=== PATIENT | female | born 1965 | race Caucasian/White ===

== ENCOUNTER 2021-06-03 08:50 | Outpatient (REF) | payer BC, SELFPAY ==
[2021-06-03 12:47] LABS: Free T4 (Free Thyroxine) 1.32 ng/dL (0.71-1.85); Thyroid Stimulating Hormone 1.96 uIU/mL (0.32-4.0)
== END 2021-06-03 08:51 | disposition home or self-care (01) ==
LOC: HO.MANLDS 08:50
PROVIDERS: PCP Internal Medicine; Visit Provider Internal Medicine
DX: E03.9 Hypothyroidism, unspecified (principal)
CPT/HCPCS: 36415; 84439; 84443

== ENCOUNTER 2022-01-19 09:29 | Outpatient (REF) | payer BC, SELFPAY ==
[2022-01-19 12:11] LABS: Thyroid Stimulating Hormone 4.24 uIU/mL (0.32-4.0)
== END 2022-01-19 09:30 | disposition home or self-care (01) ==
LOC: HO.MANLDS 09:29
PROVIDERS: PCP Internal Medicine; Visit Provider Internal Medicine
DX: Z00.00 Encounter for general adult medical examination without abnormal findings (principal); E03.9 Hypothyroidism, unspecified
CPT/HCPCS: 36415; 84443

== ENCOUNTER 2022-09-14 10:01 | Outpatient (REF) | payer BC, SELFPAY ==
[2022-09-14 11:11] LABS: MANUAL DIFF FLAG NO
[2022-09-14 11:17] LABS: Basophils Percent Auto 0.7 % (0-2); Eosinophils Absolute Auto 0.1 X10*3/uL (0.0-0.4); Eosinophils Percent Auto 2.1 % (0-4); Hematocrit 40.4 % (37.0-47.0); Hemoglobin 13.3 g/dl (12.0-16.0); Lymphocytes Absolute Auto 1.6 X10*3/uL (1.2-4.9); Mean Corpuscular HGB Conc 32.9 g/dl (31.0-35.0); Mean Corpuscular Hemoglobin 28.9 pg (27.0-33.0); Mean Corpuscular Volume 87.8 fL (80.0-98.0); Mean Platelet Volume 10.7 fL (9.4-12.3); Monocytes Absolute Auto 0.6 X10*3/uL (0.1-1.2); Monocytes Percent Auto 10.9 % (2-11); Neutrophils Absolute Auto 3.1 x10*3/uL (2.0-8.3); Neutrophils Percent Auto 57.3 % (45-73); Platelet Count 276 X10*3/uL (160-400); Red Cell Distribution Width 12.6 % (11.0-16.0); White Blood Count 5.3 X10*3/uL (4.8-10.8)
[2022-09-14 13:24] LABS: Alanine Aminotransferase 15 U/L (0-31); Albumin Level 4.3 g/dL (3.5-5.0); Alkaline Phosphatase 54 U/L (39-117); Anion Gap 13 (12-20); Aspartate Amino Transferase 18 U/L (5-31); Bilirubin Total 0.6 mg/dL (0.0-1.0); Blood Urea Nitrogen 13 mg/dL (9-16); Calcium 9.6 mg/dL (8.4-10.2); Carbon Dioxide 24 mmol/L (22-29); Chloride 107 mmol/L (96-108); Cholesterol 286 mg/dL; Estimated Glomerular Filt Rate > 60; Glucose Random 86 mg/dL (60-115); HDL Cholesterol 86 mg/dL; LDL Cholesterol Calculated 188 mg/dl; Sodium 140 mmol/L (135-145); Thyroid Stimulating Hormone 1.71 uIU/mL (0.32-4.0); Total Protein 6.9 g/dL (6.5-8.0); Triglycerides 63 mg/dL; Vitamin D 25-OH Total 31.3 ng/mL (>30)
== END 2022-09-14 10:02 | disposition home or self-care (01) ==
LOC: HO.MANLDS 10:01
PROVIDERS: Visit Provider Internal Medicine
DX: Z00.00 Encounter for general adult medical examination without abnormal findings (principal); E03.9 Hypothyroidism, unspecified
CPT/HCPCS: 36415; 80053; 80061; 82306; 84443; 85025

== ENCOUNTER 2023-07-12 15:21 | Outpatient (REF) | payer BC, SELFPAY ==
[2023-07-12 18:01] LABS: MANUAL DIFF FLAG NO
[2023-07-12 18:07] LABS: Basophils Percent Auto 0.4 % (0-2); Eosinophils Absolute Auto 0.1 X10*3/uL (0.0-0.4); Eosinophils Percent Auto 1.4 % (0-4); Hematocrit 40.9 % (37.0-47.0); Hemoglobin 13.3 g/dl (12.0-16.0); Imm Gran Abs Auto 0.03 X10*3/uL (0.00-0.03); Imm Gran Pct Auto 0.4 % (0.0-0.4); Lymphocytes Absolute Auto 2.1 X10*3/uL (1.2-4.9); Lymphocytes Percent Auto 26.3 % (20-40); Mean Corpuscular HGB Conc 32.5 g/dl (31.0-35.0); Mean Corpuscular Hemoglobin 29.1 pg (27.0-33.0); Mean Corpuscular Volume 89.5 fL (80.0-98.0); Monocytes Absolute Auto 0.8 X10*3/uL (0.1-1.2); Monocytes Percent Auto 9.7 % (2-11); Neutrophils Percent Auto 61.8 % (45-73); Platelet Count 311 X10*3/uL (160-400); Red Blood Count 4.57 X10*6/uL (4.20-5.50); White Blood Count 8.1 X10*3/uL (4.8-10.8)
[2023-07-12 18:37] LABS: Free T4 (Free Thyroxine) 1.07 ng/dL (0.71-1.85); Thyroid Stimulating Hormone 3.69 uIU/mL (0.32-4.0)
== END 2023-07-12 15:22 | disposition home or self-care (01) ==
LOC: HO.MANLDS 15:21
PROVIDERS: Visit Provider Internal Medicine
DX: E03.9 Hypothyroidism, unspecified (principal); E06.3 Autoimmune thyroiditis
CPT/HCPCS: 36415; 84439; 84443; 85025

== ENCOUNTER 2024-08-27 14:15 | Outpatient (REF) | payer BC, SELFPAY ==
[2024-08-27 17:44] LABS: MANUAL DIFF FLAG NO
[2024-08-27 17:50] LABS: Basophils Percent Auto 0.5 % (0-2); Eosinophils Absolute Auto 0.1 X10*3/uL (0.0-0.4); Eosinophils Percent Auto 1.5 % (0-4); Hematocrit 38.3 % (37.0-47.0); Hemoglobin 13.1 g/dl (12.0-16.0); Imm Gran Abs Auto 0.03 X10*3/uL (0.00-0.03); Imm Gran Pct Auto 0.4 % (0.0-0.4); Lymphocytes Absolute Auto 1.9 X10*3/uL (1.2-4.9); Lymphocytes Percent Auto 24.7 % (20-40); Mean Corpuscular HGB Conc 34.2 g/dl (31.0-35.0); Mean Corpuscular Hemoglobin 30.6 pg (27.0-33.0); Mean Corpuscular Volume 89.5 fL (80.0-98.0); Mean Platelet Volume 11.1 fL (9.4-12.3); Monocytes Absolute Auto 0.7 X10*3/uL (0.1-1.2); Monocytes Percent Auto 9.1 % (2-11); Neutrophils Absolute Auto 4.8 x10*3/uL (2.0-8.3); Neutrophils Percent Auto 63.8 % (45-73); Platelet Count 303 X10*3/uL (160-400); Red Blood Count 4.28 X10*6/uL (4.20-5.50); Red Cell Distribution Width 12.5 % (11.0-16.0); White Blood Count 7.5 X10*3/uL (4.8-10.8)
[2024-08-27 18:33] LABS: Alanine Aminotransferase 23 U/L (0-31); Albumin Level 4.3 g/dL (3.5-5.0); Alkaline Phosphatase 66 U/L (39-117); Anion Gap 15 (12-20); Aspartate Amino Transferase 30 U/L (5-31); Bilirubin Total 0.4 mg/dL (0.0-1.0); Blood Urea Nitrogen 12 mg/dL (9-16); Calcium 9.5 mg/dL (8.4-10.2); Carbon Dioxide 25 mmol/L (22-29); Chloride 105 mmol/L (96-108); Estimated Glomerular Filt Rate > 60; Glucose Random 86 mg/dL (60-115); Potassium 3.9 mmol/L (3.3-5.1); Sodium 141 mmol/L (135-145); Total Protein 7.3 g/dL (6.5-8.0)
[2024-08-27 18:43] LABS: T4 Thyroxine 8.7 ug/dL (4.5-12.0)
== END 2024-08-27 14:16 | disposition home or self-care (01) ==
LOC: HO.MANLDS 14:15
PROVIDERS: Visit Provider Internal Medicine
DX: E03.9 Hypothyroidism, unspecified (principal)
CPT/HCPCS: 36415; 80053; 84436; 84443; 85025

== ENCOUNTER 2025-09-17 15:26 | Outpatient (REF) | payer BC, SELFPAY ==
[2025-09-17 18:16] LABS: MANUAL DIFF FLAG NO
[2025-09-17 18:32] LABS: Hematocrit 41.3 % (37.0-47.0); Hemoglobin 13.4 g/dl (12.0-16.0); Imm Gran Abs Auto 0.01 X10*3/uL (0.00-0.03); Imm Gran Pct Auto 0.1 % (0.0-0.4); Lymphocytes Absolute Auto 1.9 X10*3/uL (1.2-4.9); Mean Corpuscular HGB Conc 32.4 g/dl (31.0-35.0); Mean Corpuscular Hemoglobin 29.1 pg (27.0-33.0); Mean Corpuscular Volume 89.8 fL (80.0-98.0); NRBC Abs Auto 0.000 X10*3/uL (0.0-0.012); NRBC Pct Auto 0.0 /100WBC (0.0-0.2); Platelet Count 279 X10*3/uL (160-400); Red Blood Count 4.60 X10*6/uL (4.20-5.50); White Blood Count 7.4 X10*3/uL (4.8-10.8)
[2025-09-17 18:50] LABS: Alanine Aminotransferase 21 U/L (0-31); Albumin Level 4.6 g/dL (3.5-5.0); Alkaline Phosphatase 75 U/L (39-117); Anion Gap 9 (12-20); Aspartate Amino Transferase 22 U/L (5-31); Blood Urea Nitrogen 13 mg/dL (9-16); Calcium 9.8 mg/dL (8.4-10.2); Carbon Dioxide 29 mmol/L (22-29); Chloride 108 mmol/L (96-108); Estimated Glomerular Filt Rate > 60; Potassium 4.4 mmol/L (3.3-5.1); Sodium 142 mmol/L (135-145); Total Protein 7.3 g/dL (6.5-8.0)
--- OUTSIDE RECORDS SUMMARY | 2025-09-17 19:02 | XMS_ITS | Encounter Summary ---
Author Organization [facility] Address [address] [place] [address] Phone Care Team Providers Care Salad Bar Clerk Name Role Phone Mode Richey DO Primary Care Provider [phone] Bigda, Mode Castillo DO Unavailable Bigda, Mode Castillo DO Unavailable Encounter Details Date Type Department Care Team (Late st Contact Info) Description 07/10/2024 Procedure Pass [facility], [facility] [address] [place] [address] Social History Tobacco Use Types Packs/Day Years Used Date Smoking Tobacco: Former Smokeless Tobacco: Never Alcohol Use Standard Drinks/Week Comments Yes 0 (1 standard drink = 0.6 oz pur e alcohol) Occasional Education Answer Date Recorded Are you interested in more education? Not on denae e 02/18/2023 Are you concerned about learning? Not on file 02/18/2023 No 02/18/2023 No 02/18/2023 Digital Access Answer Date Recorded No 03/19/2023 No 03/19/2023 Reliable internet access at home? Not on file 03/19/2023 Device with a working camera? Not on file Comments No Sex and Gender Information Value Date Recorded Sex Assigned at Not on file Legal Sex Female 9:38 PM EDT Gender Identity Not on file Sexual Orientation Not on file documented as of this encounter Plan of Treatment Not on file documented as of this encounter Visit Diagnoses Not on filedocumented in this encounter Care Teams Salad Bar Clerk Relationship Specialty Start Date End Date Mode Richey DO [email or web address] PCP - General 08/08/17 Mode Richey DO Historical LMR Provider 08/10/17 ViviMode torrezDO [address] [place] [address] [email or web address] Insurance Assigned Provider 01/28/24 documented as of this encounter Additional Source Comments The information contained in this document represents components of the legal health record. It is not the complete legal health record.[facility]
--- OUTSIDE RECORDS SUMMARY | 2025-09-17 19:02 | XMS_ITS | Encounter Summary ---
Author Organization [facility] Address [address] [place] [address] Phone Care Team Providers Care Manager Ems Name Role Phone Rossi Mode Castillo DO Primary Care Provider [phone] Mode Richey DO Unavailable Court Richardson MD Unavailable Tyler Vann MD Unavailable [phone] Breonna Gates WEAVING INSTRUCTOR Unavailable Carin Hernandez WEAVING INSTRUCTOR Unavailable Tarun NolanC Unavailable Kristen Silveira RDCS Unavailable [email or web address] Osmar Lou MD Unavailable [phone] Abby Tijerina WEAVING INSTRUCTOR Unavailable [phone] Mode Richey DO Unavailable Encounter Details Date Type Department Care Team (Late st Contact Info) Description 06/12/2021 Procedure Pass [address] [id number] Social History Tobacco Use Types Packs/Day Years Used Date Smoking Tobacco: Former Smokeless Tobacco: Never Comments No Sex and Gender Information Value Date Recorded Sex Assigned at Not on file Legal Sex Female 9:38 PM EDT Gender Identity Not on file Sexual Orientation Not on file documented as of this encounter Plan of Treatment Not on file documented as of this encounter Visit Diagnoses Not on filedocumented in this encounter Additional Health Concerns Infection Onset Date Last Indicated Resolved Time CoV-Risk 06/11/2021 06/11/2021 06/22/2021 1:22 AM EDT documented as of this encounter Care Teams Manager Ems Relationship Specialty Start Date End Date Mode Richey DO ana PCP - General 08/08/17 Mode iRchey DO Historical LMR Provider 08/10/17 Court Richardson MD [address] [place] [address] Historical LMR Provider 08/10/17 2 Tyler Vann MD [address] [place] [address] Historical LMR Provider 08/10/17 Breonna Gates, WEAVING INSTRUCTOR [address] [place] [address] [email or web address] Historical LMR Provider 08/10/17 2 Carin Hernandez, PATRIA [address] [place] [address] Historical LMR Provider 08/10/17 2 Tarun Nolan PA-C [address] [place] [address] [facility], [place] [address] Historical LMR Provider 08/10/17 10/31/21 Kristen Silveira, VIVEKCS Historical LMR Provider 08/10/17 10/31/21 Osamr Lou MD [address] [place] [address] Historical LMR Provider 08/10/17 2 Abby Tijerina NP [address] [place] [address] Historical LMR Provider 08/10/17 2 Mode Richey DO [address] [place] [address] [email or web address] Insurance Assigned Provider 01/28/24 documented as of this encounter Additional Source Comments The information contained in this document represents components of the legal health record. It is not the complete legal health record.[facility]
--- OUTSIDE RECORDS SUMMARY | 2025-09-17 19:02 | XMS_ITS | Continuity of Care Document ---
Author Organization [facility], [facility] Address [address] [facility] [place] [address] [place] [address] Assessment Encounter Date Assessment Date Assessment LastModified by Organization Details LastModified Time 09/17/2025 09/17/2025 [id number] [place] [id number] (SHIPPER) MDM MODERATE MUST MEET 2 OUT OF 3 ELEMENTS: PROBLEMS, DATA OR RISK ELEMENT 1: PROBLEMS ADDRESSED 1 OR MORE CHRONIC ILLNESS WITH EXACERBATION OR 2 OR MORE STABLE CHRONIC ILLNESSES OR 1 UNDIAGNOSED NEW PROBLEM OR 1 ACUTE ILLNESS W/SYMPTOMS OR 1 ACUTE COMPLICATED INJURY ELEMENT 2: DATA MUST MEET 1 OF 3 CATEGORIES CATEGORY 1: REVIEW OF PRIOR EXTERNAL NOTES, REVIEW OF RESULTS, ORDERING OF EACH TEST, ASSESSMENT REQUIRING INDEPENDENT HISTORIAN OR CATEGORY 2: INDEPENDENT INTERPRETATION OF TESTS BY ANOTHER PHYSICIAN OR SPECIALIST OR CATEGORY 3: DISCUSSION OF MGT OR TEST INTERPRETATION W/EXTERNAL PHYSICIAN OR SPECIALIST ELEMENT 3: RISK RISK OF COMPLICATIONS AND/OR MORBIDITY OR MORTALITY OF PATIENT MANAGEMENT PROVIDER MUST THOROUGHLY DOCUMENT EACH ELEMENT THAT IS COVERED Not available 09/17/2025 15:23:06 Plan of Treatment Reminders Order Date Submit Date Provider Last Modified By Organization Details Last Modified Time Details Appointments FOLLOW UP 15 2024 02:45P M DR VALVERDE Not available Not available Not available Lab TSH + free T4, serum 2024 025 [facility], [address] [place] [address], [place], [address], 09/17/2025 15:30:47 CBC 2024 025 [facility], [address] [place] [address], [id number], 09/17/2025 15:30:47 CMP, serum or plasma 2024 025 [facility], [address] [place] [address], [place], [address], 09/17/2025 15:30:47 Referral None recorded . Procedures None recorded . Surgeries None recorded . Imaging None recorded . Medication Orders None recorded . Patient TargetsNo targets recorded. Patient InstructionsNo instructions recorded. Reason for Referral None Reported. Problems Name Problem SNOMED Code Status Onset Date Resolution Date Notes Provider Name and Address Organization Details Recorded Time Willow thyroiditi s 55612778 Active 2018 Not Available [facility] 12:50:35 Hypothyroi dism 18584651 Active 2018 Not Available [facility] 12:50:35 Contact dermatitis caused by urushiol from [facility] richard 814235933 Active 2022 KARLA ESTRADA [address] [place] [address], [phone], [facility] [place] 3 17:03:05 Problem Notes None recorded. Medical Equipment None Reported. Allergies Allergen ID Allergen Name Allergen Category Reaction Reaction Severity Criticality Documentation Date Start Date Code Code System Note Provider Name and Address Organization Details Recorded Time 2647 Product containin g penicilli n (product) medicatio n Not available Not available Not available 10/25/2018 601[address] 8001 SN[facility]ED [facility] 9 10:59:09 Medications Name Sig Start Date Stop Date Status Note LastModified by Organization Details LastModified Time levothyroxi ne 175 mcg tablet TAKE 1 TABLET BY MOUTH ONCE DAILY- 04/11 completed Not Available Not Available Not Available prednisone 10 mg tablet TAKE 4 TABLETS BY MOUTH ONCE DAILY FOR 5 DAYS 08/27 completed Not Available Not Available Not Available azithromyci n 250 mg tablet TAKE 2 TABLETS (500 MG) BY ORAL ROUTE ONCE DAILY FOR 1 DAY THEN 1 TABLET (250 MG) BY ORAL ROUTE ONCE DAILY FOR 4 DAYS 09/10 completed Not Available Not Available Not Available ofloxacin 0.3 % eye drops INSTILL 1 DROP INTO EACH EYE 4 TIMES DAILY START 1 DAY BEFORE SURGERY 06/12 completed Not Available Not Available Not Available oxycodone-a cetaminophe n 5 mg-325 mg tablet TAKE 1 TABLET BY MOUTH EVERY 4 TO 6 HOURS NEEDED FOR PAIN 06/12 completed Not Available Not Available Not Available fluorometho lone 0.1 % eye drops,suspe nsion INSTILL 1 DROP INTO EACH EYE 4 TIMES DAILY. START AFTER SURGERY. 06/12 completed Not Available Not Available Not Available levothyroxi ne 150 mcg tablet TAKE 1 TABLET BY MOUTH ONCE DAILY active Not Available Not Available No t Available diclofenac potassium 50 mg tablet 10/25 completed Not Available Not Available Not Available omeprazole 20 mg capsule,del ayed release 10/25 completed Not Available Not Available Not Available zolpidem 5 mg tablet TAKE 1 TABLET BY MOUTH NEEDED FOR SLEEP 08/27 completed Not Available Not Available Not Available ibuprofen 600 mg tablet 09/15 completed Not Available Not Available Not Available methylpredn isolone 4 mg tablets in a dose pack TAKE BY MOUTH DIRECTED ON INSIDE OF PACKAGE 07/12 completed Not Available Not Available Not Available Afluria Qd 2018- (36 mos up)(PF)60 mcg (15 mcg x4)/0.5 mL IM syringe 09/10 completed Not Available Not Available Not Available Vitals Date Recorded Body weight Body mass index (BMI) Body height Heart rate Oxygen saturation Systolic And Diastolic Provider Name and Address Organization Details Last Updated DateTime 5 [address].9 1 g 28.8 kg/m2 177.8 cm 67 /min 98 % 132/64 mm[Hg] [facility] 5 14:54:17 Social History Question Answer Notes LastModified by Organizat ion Details LastModified Time Tobacco Smoking Status Former Smoker quit 30 years Not Available [facility] 08/26/2020 03:36:24 What Was The Date Of Your Most Recent Tobacco Screening? 09/17/2025 [email or web address] Information not available 09/17/2025 Sex: Female Functional Status Question Answer Note LastModified by Organization D etails LastModified Time Do you or have you ever used any other forms of tobacco or nicotine? No [email or web address] Information not available 07/12/2023 Mental Status None recorded. Family History Nothing Reported. Medical History No medical history recorded. Gynecological HistoryNo gynecological history recorded. Obstetrics History GPAL:G 0 P 0 0 0 0 Immunizations Vaccine Type Date Status Note Provider Nam e and Address Organization Details Recorded Time COVID-19, mRNA, LNP-S, PF, 100 mcg/0.5mL dose or 50 mcg/0.25mL dose 1 completed Mode Valverde DO [address] [place] [address], [phone], [facility] [place] 06/12/2021 11:24:27 COVID-19, mRNA, LNP-S, PF, 100 mcg/0.5mL dose or 50 mcg/0.25mL dose 1 completed Mode Valverde DO [address] [place] [address], [phone], [facility] [place] 06/12/2021 11:24:33 Influenza, split virus, quadrivalent, preservative 1 completed KARLA ESTRADA [address] [place] [address], [phone], [facility] [place] 07/31/2021 13:42:42 Influenza, split virus, quadrivalent, preservative 1 [facility] 13:43:06 COVID-19, mRNA, LNP-S, PF, 100 mcg/0.5mL dose or 50 mcg/0.25mL dose 2 completed Mode Valverde DO [address] [place] [address], [phone], [facility] [place] 09/06/2022 10:52:46 Influenza, split virus, quadrivalent, preservative 2 completed Mode Valverde DO [address] [place] [address], [phone], [facility] [place] 09/06/2022 11:11:21 zoster recombinant 3 completed Luiza fox [facility] 04/05/2023 10:27:51 Tdap 3 completed Luiza Chavez [facility] 04/05/2023 10:40:59 Influenza, split virus, quadrivalent, preservative 9 completed Mode Valverde DO [address] [place] [address], [phone], [facility] [place] 08/24/2019 09:56:41 Past Encounters Encounter ID Performer Location Encounter Start Date Encounter Closed Date Diagnosis/Indication Diagnosis SNOMED-CT Code Diagnosis ICD10 Code Diagnosis IMO Codes Diagnosis Note [id number] Mode Valverde DO [facility] [address] [facility] [address] 09/17/2025 14:31:43 09/17/2025 16:05:50 Hypothyroidism 67042580 E03.9 doing well and is feeling well Health Concerns Section Related Observation LastModified by Organization Detai ls LastModified Time None Recorded Concern Status LastModified by Organization Details LastModified Time None Recorded Payers Encounter Date Sequence Insurance Name Policy Number Policy Bhardwaj Covered Member ID Bhardwaj Member ID Guarantor Name 09/17/2025 1 [facility] [id number] Letty Collier [id number] Letty Collier Notes Date Note Type Note Provider Name a nd Address Organization Details Recorded Time 09/17/2025 text/html ROS as noted in the HPI here for rechk and is doing ok overallrelates feels well and is doing ok Mode Valverde DO [address] [place], [address], [facility] [place] 09/17/2025 15:25:19 OBGyn Episode No OBEpisode recorded.
--- OUTSIDE RECORDS SUMMARY | 2025-09-17 19:02 | XMS_ITS | Clinical Summary ---
Author Organization [facility] Address [address] [place] [id number] Phone Care Team Providers [employer] Name Role Phone Mode Richey DO Primary Care Provider [phone] Bigda, Mode Castillo DO Unavailable Bigda, Mode Castillo DO Unavailable Allergies Active Allergy Reactions Criticality Noted Date Comments Penicillins Hives 04/12/2017 Medications fluorometholon e (FML LIQUIFILM) 0.1 % ophthalmic suspension fluorometholone 0.1 % eye drops,suspension INSTILL 1 DROP INTO EACH EYE 4 TIMES DAILY. START AFTER SURGERY. 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 Immunizations Immunization Administration Dates Next Due COVID-19 (Pre-08/15) Moderna Vaccine, mRNA, PF 0 12/03/2020,11/05/2020 Influenza Quadrivalent Preservative Free IM 07/26 Family History Medical History Relation Comments Breast cancer Paternal Aunt Breast cancer Paternal Cousin Relation Status Comments Paternal Aunt Paternal Cousin Social History Tobacco Use Types Packs/Day Years [...] on file Sexual Orientation Not on file Last Filed Vital Signs Vital Sign Reading Time Taken Comments Blood Pressure 124/76 08/23/2024 10:29 AM EDT Pulse 60 08/14/2023 11:13 AM EDT Temperature 36.5 C (97.7 F) 08/14/2023 11:13 AM EDT Respiratory Rate 17 08/14/2023 11:13 AM EDT Oxygen Saturation 98% 08/14/2023 11:13 AM EDT Inhaled Oxygen Concentration - - Weight 91.6 kg (202 lb) 08/23/2024 10:29 AM EDT Height 177.8 cm (5' 10 ) 08/23/2024 10:29 AM EDT Body Mass Index 28.98 08/23/2024 10:29 AM EDT Plan of Treatment Health Maintenance Due Date Last Done Comments TSH LEVEL 1967 DEPRESSION SCREENING 1979 SMOKING Hx and SMOKELESS TOBACCO SCREENING 1980 HEPATITIS C SCREENING 1985 HIV ONE-TIME SCREENING (18-65 YEARS) 1985 SCREENING FOR DIABETES 2002 COLOGUARD 2012 COLONOSCOPY 2012 COLORECTAL CANCER SCREENING 2012 FIT TEST 2012 FOBT 2012 SIGMOIDOSCOPY 2012 VIRTUAL COLONOSCOPY 2012 PNEUMOCOCCAL VACCINES (50+ years) (1 of 1 - PCV) 2017 ZOSTER VACCINES (2 of 2) 05/31/2023 04/05/2023 PAP SMEAR 08/17/2024 08/17/2021, 03/11/2015 INFLUENZA VACCINE (#1) 2025 , 07/30/2021, 08/22/2019 COVID-19 VACCINE ( season) 2025 09/06/2022, 08/21/2021, 12/03/2020, Additional history exists MAMMOGRAM 06/11/2027 06/11/2025, 05/26, 09/28/2019, Additional history exists LIPID PANEL 09/14/2027 09/14/2022, 09/14/2022 Adult Td,Tdap Booster 04/05/2033 04/05/2023 RSV VACCINE (1 - 1-dose 75+ series) 2042 HEPATITIS A VACCINES Aged Out No long er eligible based on patient's age to complete this topic HIB VACCINES Aged Out No longer eligi ble based on patient's age to complete this topic MENINGOCOCCAL VACCINES (ACWY) Aged Out No longer eligible based on patient's age to complete this topic MENINGOCOCCAL VACCINES (B) Aged Out N o longer eligible based on patient's age to complete this topic Medical Devices Not on file Procedures Procedure Name Priority Date/Time Associated Diagnosis Comments BI MAMMOGRAM SCREENING WITH TOMOSYNTHESIS WITH CAD (BILATERAL) Routine 06/11/2025 9:15 AM EDT Breast screening PAP TEST Routine 08/17/2021 12:00 AM EDT from Last 3 Months or Most Recently Relevant to Health Maintenance Results * BI MAMMOGRAM SCREENING WITH TOMOSYNTHESIS WITH CAD (BILATERAL) (06/11/2025 9:15 AM EDT) Anatomical Region Laterality Modality Breast Left, Breast Right, Breast Bilateral Bila teral Mammography 06/12/2025 8:21 AM EDT Impressions 06/12/2025 8:31 AM EDT No mammographic evidence of malignancy in either breast. Annual screening mammography is recommended. BI-RADS 2 BENIGN The patient will be notified of the results and recommendations. Narrative 06/12/2025 8:31 AM EDT BI MAMMOGRAM SCREENING WITH TOMOSYNTHESIS WITH CAD (BILATERAL) Additional patient information: Screening. COMPARISON: Comparison is made with relevant prior imaging. Breast composition: The breasts are heterogeneously dense, which may obscure small masses. FINDINGS: No abnormal masses, suspicious calcifications, or other significant findings are identified mammographically in either breast. The group of microcalcifications in the posterior outer left breast above the nipple line on the MLO view does not appear significant changed from 06/22/2021. Biopsy marker remains present in the outer left breast more anteriorly. Procedure Note Kirit Wilde MD - 06/12/2025 BI MAMMOGRAM SCREENING WITH TOMOSYNTHESIS WITH CAD (BILATERAL) Additional patient information: Screening. COMPARISON: Comparison is made with relevant prior imaging. Breast composition: The breasts are heterogeneously dense, which mayobscure small masses. FINDINGS: No abnormal masses, suspicious calcifications, or other significantfindings are identified mammographically in either breast. The group ofmicrocalcifications in the posterior outer left breast above the nippleline on the MLO view does not appear significant changed from 06/22/2021.Biopsy marker remains present in the outer left breast more anteriorly. IMPRESSION: No mammographic evidence of malignancy in either breast. Annual screening mammography is recommended. BI-RADS 2 BENIGN The patient will be notified of the results and recommendations. us Beto Joon Dee DO IMG MG EXAMS Final R esult * Pap Smear (08/17/2021 12:00 AM EDT) 08/17/2021 08/18/2021 9:2 3 AM EDT Narrative SEE NARRATIVE - 08/25/2021 4:13 PM EDT [address] [id number] Sports Physician: Dodie Thomas MD MANAGER MONITORING Cytology Report FINAL DIAGNOSIS A. PAP SMEAR (SUREPATH) CE: SPECIMEN ADEQUACY: Satisfactory for evaluation; transformation zone present. INTERPRETATION: NEGATIVE FOR INTRAEPITHELIAL LESION OR MALIGNANCY. Electronically Signed Out By: ZACHARY Rich(ASCP) The Pap test is a screening test primarily for squamous cancers and precursors and has associated false-negative and false-positive results. New technologies such as liquid-based preparations may decrease but will not eliminate all false-negative results. Regular sampling and follow-up of unexplained clinical signs and symptoms are recommended to minimize false negative results. PROCEDURES/ADDENDA HPV Testing (Requested) Ordered Date: 08/18/2021 A. PAP SMEAR (SUREPATH) CE: Human Papilloma Virus Test Negative for high-risk human papillomavirus types 16, 18, 45 and the Other high risk probe set (Includes 31, 33, 35, 39, 51, 52, 56, 58, 59, 66, 68) by [employer] HR-HPV analysis. Clinical correlation is advised. This HPV test was performed at [facility], [address] [place] [address]. This test has been FDA approved for SurePath cervical cytology specimens. The accuracy and precision of this test for all other specimen sources has been verified in the Cytopathology Laboratory of the [facility] and has not been cleared or approved by the U.S. Food and Drug Administration. Clinical correlation is advised. CLINICAL HISTORY Date of Last Menstrual Period: Not Provided Menstrual History: Post Menopausal Other Clinical Conditions: Screening Pap SPECIMEN SOURCE A: PAP SMEAR (SUREPATH) CE Patient Name: MCMATTHEW DICKSONIDITH : 1965 (Age: 56) Sex: F [facility]: [facility] Location: [facility] Date of Collection: 08/17/2021 Date of Reported: 08/25/2021 16:13 Results to: Mayra Dickson MSN, BS us Mayra Dickson [employer] SUPERVISOR CYTOLOGY ORDERABLES Final Resu lt SEE NARRATIVE from Last 3 Months or Most Recently Relevant to Health Maintenance Insurance * Guarantor: Letty Blood Account Type Relation to Patient Date of Phone Billing Address Personal/Family Self [address] [place] [id number] [facility] Member Subscriber Plan / Payer ( fective 2021-) Name:Letty Blood Relation to Subscriber:Self Name:LETTY BLOOD Payer ID:[id number] (NAIC) Type:HMO Address: [id number] [place] [phone] * Guarantor: Letty Blood Account Type Relation to Patient Date of Phone Billing Address Personal/Family Self [address] [place] [address] Member Subscriber Plan / Payer ( fective 2021-) Name:Letty Blood Relation to Subscriber:Self Name:LETTY BLOOD Payer ID:[id number] (NAIC) Type:HMO Address: [address] [place] [id number] * Guarantor: Letty Blood Account Type Relation to Patient Date of Phone Billing Address Personal/Family Self [address] [place] [id number] [place] [address] Member Subscriber Plan / Payer ( fective 2021-) Name:Letty Blood Relation to Subscriber:Self Name:LETTY BLOOD Payer ID:[id number] (NAIC) Type:HMO Address: [address] [place] [address] Member Subscriber Plan / Payer ( fective 2021-) Name:Letty Blood Relation to Subscriber:Self Name:LETTY BLOOD Payer ID:[id number] (NAIC) Type:HMO Address: [id number] [place] [phone] * Guarantor: Letty Blood Account Type Relation to Patient Date of Phone Billing Address Personal/Family Self [address] [place] [phone] [place] [address] Member Subscriber Plan / Payer ( fective 2021-) Name:Letty Blood Relation to Subscriber:Self Name:LETTY BLOOD Payer ID:[id number] (NAIC) Type:HMO Address: [id number] [place] [phone] * Guarantor: Letty Blood Account Type Relation to Patient Date of Phone Billing Address Personal/Family Self [address] [place] [phone] [place] [address] Member Subscriber Plan / Payer ( fective 2021-) Name:Letty Blood Relation to Subscriber:Self Name:LETTY BLOOD Payer ID:[id number] (NAIC) Type:HMO Address: [facility] [id number] [place] [id number] [place] Care Teams [employer]er Relationship Specialty Start Date End Date Mode Richey DO PCP - General 08/08/17 Mode Richey DO Historical LMR Provider 08/10/17 Mode Richey DO [address] [place] [id number] [email or web address] Insurance Assigned Provider 01/28/24 Additional Source Comments The information contained in this document represents components of the legal health record. It is not the complete legal health record.[facility]
--- OUTSIDE RECORDS SUMMARY | 2025-09-17 19:02 | XMS_ITS | Data Portability ---
Author Organization [facility], Telehealth Patient Home Address [address] [place] [address] Assessment Encounter Date Assessment Date Assessment LastModified by Organization Details LastModified Time 06/12/2021 06/12/2021 [id number] [place] [id number] (DERMATOLOGY TECHNICIAN) MDM MODERATE MUST MEET 2 OUT OF [...] EACH ELEMENT THAT IS COVERED Not available 06/12/2021 11:34:00 07/12/2023 07/12/2023 [id number] [place] [id number] (DERMATOLOGY TECHNICIAN) : MDM LOW MUST MEET 2 OF 3 ELEMENTS: PROBLEMS, DATA OR RISK ELEMENT 1: PROBLEMS ADDRESSED (LOW): 2 OR MORE SELF-LIMITED OR MINOR PROBLEMS OR 1 STABLE CHRONIC ILLNESS OR 1 ACUTE UNCOMPLICATED ILLNESS OR INJURY ELEMENT 2: DATA TO BE REVISED AND ANALYZED (LOW) MUST MEET 1 OF 2 CATEGORIES: CATEGORY 1. REVIEW OF PRIOR EXTERNAL NOTES/RESULTS, ORDERING OF TEST(S) CATEGORY 2. ASSESSMENT REQUIRING INDEPENDENT HISTORIAN(S) INCLUDE WHO THE HISTORIAN IS AND RELATION TO PT AND WHY PT IS UNABLE TO GIVE COMPLETE HISTORY ELEMENT 3: RISK (LOW) RISK OF COMPLICATIONS AND/OR MORBIDITY OR MORTALITY OF PATIENT MANAGEMENT PROVIDER MUST THOROUGHLY DOCUMENT ALL OF THE ELEMENTS COVERED Not available 07/12/2023 15:05:30 08/27/2024 08/27/2024 Patient presente d for medication refill. Patient tolerating medication well at current dose without adverse effects. Refilled as below. Discussed plan with patient, who expressed understanding. Follow up as noted below. Not available 08/27/2024 14:07:15 09/17/2025 09/17/2025 [id number] [place] [id number] (DERMATOLOGY TECHNICIAN) MDM MODERATE MUST MEET 2 OUT OF [...] Lab TSH + free T4, serum 2024 [facility], [address] [place] [address], [id number], 09/17/2025 15:30:47 CBC 2024 025 [facility], [address] [place] [address], [address], 09/17/2025 15:30:47 CMP, serum or plasma 2024 025 [facility], [address] [place] [address], [id number], 09/17/2025 15:30:47 lipid panel, serum 2023 024 [facility], [address] [place] [address], [address], 08/27/2024 14:10:36 CMP, serum or plasma 2023 024 [facility], [address] [place] [address], [id number], 08/28/2024 11:12:15 CBC w/ auto diff 2023 024 [facility], [address] [place] [address], [address], 08/27/2024 14:10:36 TSH + free T4, serum 2023 024 [facility], [address] [place] [address], [address], 08/27/2024 14:10:36 TSH + free T4, serum 2022 023 [facility], [address] [place] [address], [address], 07/13/2023 12:46:19 CMP, serum or plasma 2022 023 [facility], [address] [place] [address], [address], 07/12/2023 15:10:41 CBC 2022 023 [facility], [address] [place] [address], [address], 07/13/2023 12:46:19 CMP, serum or plasma 2020 021 [facility], [address] [place] [address], [id number], 06/12/2021 11:39:33 CBC w/ auto diff 2020 [facility], [address] [place] [address], [place], [address], 06/12/2021 11:39:32 lipid panel, blood 2020 [facility], [address] [place] [address], [address], 06/12/2021 11:39:32 vitamin D, 25-hydrox y, total, serum 2020 [facility], [address] [place] [address], [place], [address], 06/12/2021 11:39:32 TSH, serum or plasma 2020 [facility], [address] [place] [address], [place], [address], 06/12/2021 11:39:33 Referral None recorded. Procedures None recorded. Surgeries None recorded. Imaging MAMMO, screening , digital, bilateral 2020 [facility], [address] [place] [address], [id number], 06/22/2021 13:20:36 Medication Orders levothyro xine 150 mcg tablet 2023 024 [facility], [address] [place], [address], 08/27/2024 14:07:34 levothyro xine 150 mcg tablet 2022 023 [facility], [address] [place], [address], 07/12/2023 15:06:30 Patient TargetsNo targets recorded. Patient Instructions Encounter Date Encounter Id Patient Instructions Last Modified By Organization Details Last Modified Time 06/12/2021 [id number] mammogram: about this test Not available 06/12/2021 11:37:24 hypothyroidism: care instructions Not available 06/12/2021 11:37:24 07/12/2023 [id number] jamie's thyroiditis: care instructions Not available 07/12/2023 15:06:24 Reason for Referral None Reported. Results Created Date Observation Date Name Description Value Unit Range Abnormal Flag Note LastModifiedBy Organization Detail LastModifiedTime 06/22/20 21 06/22/2021 MAMMO , scree janelle, digit al, bilat eral No observ ation record ed. [facility] [address] [facility], [place], [address], 07/12/2023 15:01:20 Result Notes None recorded. Problems Name Problem SNOMED Code Status Onset Date Resolution Date Notes Provider Name and Address Organization Details Recorded Time Jamie thyroiditi s 73345483 Active 2018 Not Available [facility] 12:50:35 Hypothyroi dism 85531812 Active 2018 Not Available [facility] 12:50:35 Contact dermatitis caused by urushiol from [facility] richard 550303434 Active 2022 KARLA ESTRADA [address] [place] [address], [place], [address], [facility] 3 17:03:05 Problem Notes None recorded. Medical Equipment None Reported. Allergies Allergen ID Allergen Name Allergen Category Reaction Reaction Severity Criticality Documentation Date Start Date Code Code System Note Provider Name and Address Organization Details Recorded Time 2647 Product containin g penicilli n (product) medicatio n Not available Not available Not available 10/25/2018 03553 8001 SNOMED Kenya fox [facility] Internal [facility] 9 10:59:09 Medications Name Sig [...] Available Not Available Vitals Date Recorded Body height Body mass index (BMI) Body weight Heart rate Oxygen saturation Systolic And Diastolic Provider Name and Address Organization Details Last Updated DateTime 1 172.72 cm 28.7 kg/m2 30644.2 4 g 57 /min 98 % 130/84 mm[Hg] Mode Valverde, [address] [place], [address] [place] [address] Internal Medicine 1 11:25:38 Date Recorded Body height Body mass index (BMI) Body weight Heart rate Oxygen saturation Systolic And Diastolic Provider Name and Address Organization Details Last Updated DateTime 3 177.8 cm 28.7 kg/m2 10031.4 7 g 71 /min 100 % 130/80 mm[Hg] Kasia Deemond [facility] 3 14:38:05 Date Recorded Body height Body mass index (BMI) Body weight Heart rate Oxygen saturation Systolic And Diastolic Provider Name and Address Organization Details Last Updated DateTime 4 177.8 cm 29.1 kg/m2 84935.2 5 g 65 /min 98 % 122/76 mm[Hg] Tommyshay Ennis [facility] Internal [facility] 4 13:51:54 Date Recorded Body height Body mass index (BMI) Body weight Heart rate Oxygen saturation Systolic And Diastolic Provider Name and Address Organization Details Last Updated DateTime 0 172.72 cm 28.1 kg/m2 07047.5 1 g 65 /min 98 % 120/78 mm[Hg] Luiza Chavez [facility] 0 10:57:30 Date Recorded Body weight Body mass index (BMI) Body height Heart rate Oxygen saturation Systolic And Diastolic Provider Name and Address Organization Details Last Updated DateTime 5 66862.9 1 g 28.8 kg/m2 177.8 cm 67 /min 98 % 132/64 mm[Hg] Keisha Ward [facility] Internal Medicine 5 14:54:17 Social History Question [...] other forms of tobacco or nicotine? No [email or web address] Information not available 07/12/2023 Mental Status None recorded. Family History Nothing Reported. Medical History No medical history recorded. Gynecological HistoryNo gynecological history recorded. Obstetrics History GPAL:G 0 P 0 0 0 0 Immunizations Vaccine Type Date Status Note Provider Nam e and Address Organization Details Recorded Time COVID-19, mRNA, LNP-S, PF, 100 mcg/0.5mL dose or 50 mcg/0.25mL dose 1 completed Mode Valverde DO [address] [place] [address], [address], [facility] Internal [facility] 06/12/2021 11:24:27 COVID-19, mRNA, LNP-S, PF, 100 mcg/0.5mL dose or 50 mcg/0.25mL dose 1 completed Mode Valverde DO [address] [place] [address], [address], [facility] 06/12/2021 11:24:33 Influenza, split virus, quadrivalent, preservative 1 completed KARLA ESTRADA [address] [place] [address], [address], [facility] 07/31/2021 13:42:42 Influenza, split virus, quadrivalent, preservative 1 completed Luiza fox, [facility] 07/31/2021 13:43:06 COVID-19, mRNA, LNP-S, PF, 100 mcg/0.5mL dose or 50 mcg/0.25mL dose 2 completed Mode Valverde DO [address] [place] [address], [address], [facility] 09/06/2022 10:52:46 Influenza, split virus, quadrivalent, preservative 2 completed Mode Valverde DO [address] [place] [address], [address], [facility] 09/06/2022 11:11:21 zoster recombinant 3 completed Luiza fox, [facility] 04/05/2023 10:27:51 Tdap 3 completed Luiza fox, [facility] 04/05/2023 10:40:59 Influenza, split virus, quadrivalent, preservative 9 completed Mode Valverde DO [address] [place] [address], [address], [facility] 08/24/2019 09:56:41 Past Encounters Encounter ID Performer Location Encounter Start Date Encounter Closed Date Diagnosis/Indication Diagnosis SNOMED-CT Code Diagnosis ICD10 Code Diagnosis IMO Codes Diagnosis Note [id number] Mode Warren Valverde [facility] [address], [place] [address] 10/25/2018 10:50:25 10/25/2018 11:15:53 Acute sinusitis 99082814 J01.90 favor bacterial with sinus ttp and fever mucinex - dm fluids flonase Hypothyroidism 93083710 E03.9 due for las Adult heal th examination 994909521 Z00.00 due for labs [id number] Mode Valverde [facility] [address], [place] [address] 10/27/2018 09:56:13 10/27/2018 14:15:37 Jamie thyroiditis 89744210 E06.3 will rechk tsh and t4 today Upper resp iratory infection 68376259 J06.9 prob flu and is slowly getting better [id number] Mode Valverde [facility] [address], [place] [address] 09/10/2019 16:19:53 09/10/2019 16:59:56 Jamie thyroiditis 77427268 E06.3 will rechk tsh and t4 today and is doing ok overall will need to check Screening for malignant neoplasm of colon 743619594 Z12.11 Screening mammography 24 414676 Z12.31 [id number] Mode Valverde [facility] [address], [place] [address] 09/15/2020 10:29:19 09/15/2020 12:16:35 Hypothyroidism 16743121 E03.9 doing well and is feeling well Jamie thyroiditis 21 938281 E06.3 will rechk tsh and t4 today and is doing ok overall will need to check [id number] Mode Valverde [facility] [address], [place] [address] 06/12/2021 11:07:04 06/12/2021 14:56:16 Hypothyroidism 17197790 E03.9 doing well and is feeling well Screening mammography 24 036435 Z12.31 needs done Adult heal th examination 822228838 Z00.00 [id number] Mode Valverde DO [facility] Internal Medicine [address] [facility] [address] 07/12/2023 14:32:19 07/12/2023 15:13:30 Jamie thyroiditis 07463215 E06.3 will rechk tsh and t4 today and is doing ok overall will need to check Hypothyroidism 29186641 E03.9 doing well and is feeling well [id number] Mode Valverde DO [facility] Internal Medicine [address] [facility] [address] 7 08/27/2024 13:46:23 08/27/2024 14:22:25 Renewal of prescription 592405754 Z76.0 here for rech doing well Depression screening 171 672001 Z13.31 neg Hypothyroidism 64518710 E03.9 doing well and is feeling well Cholesterol screening 27 2258995 Z13.220 [id number] Mode Valverde DO [facility] Internal Medicine [address] [facility] 7 09/17/2025 14:31:43 09/17/2025 16:05:50 Hypothyroidism 93833421 E03.9 doing well and is feeling well Health Concerns Section Related Observation LastModified by Organization Detai ls LastModified Time None Recorded Concern Status LastModified by Organization Details LastModified Time None Recorded Advance Directives Directive None Recorded Payers Insurance Date Sequence Insurance Name Policy Number Policy Bhardwaj Covered Member ID Bhardwaj Member ID Guarantor Name 09/14/2025 1 [facility] [place] [id number] Letty Collier [id number] Letty Collier Notes Date Note Type Note Provider Name and Address Organization Details Recorded Time 0 text/html ROS as noted in the HPI here for rechk and is doing ok relates that she is feeling good hasnt been sick careful without being ridiculous still runs but not distance Mode Valverde DO [address] [place] [address], [address], [facility] 09/15/2020 11:29:46 1 text/html ROS as noted in the HPI here for rechk and noted to have a sorethroat yesterdayseen at neg covid and neg strepand feels better todayrelates that now only has some nasal congestionno fever Mode Valverde DO [address] [place], [address], [facility] 06/12/2021 11:38:55 3 text/html here for rechk and is doing well still running doing wellno cp no sobsleep is goodappetite goodbowels okbladder ok Mode Valverde DO [address] [place], [address], [facility] 07/12/2023 15:09:54 4 text/html HypothyroidReported by PatientHPIFor associated symptoms, patient reportsno weakness,no lightheadedness,no fatigue,no cold intolerance,no constipation,no weight gain,no involuntary weight loss,normal mood,no menstrual irregularity,no pain,no dry/coarse skin,no edema,no deepening of the voice,no hoarseness,no goiter,no mass detected,no chest pain, andno palpitations. For treatment, patient reportstaking medication as directed.ROS as noted in the HPI d doing great overall just ran her Decathon Mode Valverde DO [address] [place], [address], [facility] 08/27/2024 14:11:55 5 text/html ROS as noted in the HPI here for rechk and is doing ok overallrelates feels well and is doing ok Mode Valverde DO [address] [place], [address], [facility] 09/17/2025 15:25:19 OBGyn Episode No OBEpisode recorded.
--- OUTSIDE RECORDS SUMMARY | 2025-09-17 19:02 | XMS_ITS | Encounter Summary ---
Author Organization [facility] Address [address] [place] [address] Phone Care Team Providers Care Program Support Clerk Name Role Phone Mode Richey DO Primary Care Provider [phone] Mode Richey DO Unavailable Court Richardson MD Unavailable Tyler Vann MD Unavailable Breonna Gates FLESHING MACHINE OPERATOR Unavailable Carin Hernandez FLESHING MACHINE OPERATOR Unavailable [phone] Tarun NolanC Unavailable Kristen Silveira RDCS Unavailable [email or web address] Osmar Lou MD Unavailable [phone] Abby Tijerina FLESHING MACHINE OPERATOR Unavailable Mode Richey DO Unavailable Encounter Details Date Type Department Care Team (Late st Contact Info) Description 06/12/2021 Ancillary Orders Virtual Department [address] [place] [address] Mode Richey DO [address] [facility] [place] [address] [email or web address] Breast screening Social History Tobacco Use Types Packs/Day Years Used Date Smoking Tobacco: Former Smokeless Tobacco: Never Comments No Sex and Gender Information Value Date Recorded Sex Assigned at Not on file Legal Sex Female 9:38 PM EDT Gender Identity Not on file Sexual Orientation Not on file documented as of this encounter Plan of Treatment Not on file documented as of this encounter Results * BI MAMMOGRAM SCREENING WITH TOMOSYNTHESIS WITH CAD (BILATERAL) (06/22/2021 11:50 AM EDT) Anatomical Region Laterality Modality Breast Left, Breast Right, Breast Bilateral Bila teral Mammography 06/22/2021 12:3 8 PM EDT Impressions 06/22/2021 12:41 PM EDT No mammographic evidence of malignancy. Recommend routine annual surveillance. BI-RADS CATEGORY: 2 - Benign finding. DENSITY: The breast tissue is heterogeneously dense, which could obscure a lesion on mammography. Narrative 06/22/2021 12:41 PM EDT 55-year-old female with no current breast symptoms. Comparison made to previous on 09/28/2019 and as far back as 08/04/2011. Interpretation made in conjunction with computer-aided detection and tomosynthesis. The breasts are heterogeneously dense, which may obscure small masses. Chronic bilateral calcifications, nodularity and left breast biopsy marker. There are no suspicious masses, areas of architectural distortion, or suspicious clusters of microcalcifications. Procedure Note Joon Bravo MD - 06/22/2021 55-year-old female with no current breast symptoms. Comparison made toprevious on 09/28/2019 and as far back as 08/04/2011. Interpretation madein conjunction with computer-aided detection and tomosynthesis. The breasts are heterogeneously dense, which may obscure small masses.Chronic bilateral calcifications, nodularity and left breast biopsymarker. There are no suspicious masses, areas of architectural distortion, orsuspicious clusters of microcalcifications. IMPRESSION: No mammographic evidence of malignancy. Recommend routine annualsurveillance. BI-RADS CATEGORY: 2 - Benign finding. DENSITY: The breast tissue is heterogeneously dense, which could obscurea lesion on mammography. Mode Richey DO IMG MG EXAMS Final Result documented in this encounter Visit Diagnoses Diagnosis Breast screening Breast screening, unspecified Breast screening Breast screening, unspecified documented in this encounter Additional Health Concerns Infection Onset Date Last Indicated Resolved Time CoV-Risk 06/11/2021 06/11/2021 06/22/2021 1:22 AM EDT documented as of this encounter Care Teams Program Support Clerk Relationship Specialty Start Date End Date Rossi Mode DO Jonathan PCP - General 08/08/17 Mode Richey DO Historical LMR Provider 08/10/17 Court Richardson MD [address] [place] [address] Historical LMR Provider 08/10/17 2 Tyler Vann MD [address] [place] [address] Historical LMR Provider 08/10/17 Breonna Gates NP [address] [place] [address] [email or web address] Historical LMR Provider 08/10/17 2 Carin Hernandez NP [address] [place] [address] Historical LMR Provider 08/10/17 2 Tarun Nolan PA-C [address] [place] [address] [facility], [place] [address] Historical LMR Provider 08/10/17 10/31/21 Kristen Silveira RDCS Historical LMR Provider 08/10/17 10/31/21 Osmar Lou MD [address] [place] [address] Historical LMR Provider 08/10/17 2 Abby Tijerina NP [address] [place] [address] Historical LMR Provider 08/10/17 2 Mode Richey DO [address] [place] [address] [email or web address] Insurance Assigned Provider 01/28/24 documented as of this encounter Additional Source Comments The information contained in this document represents components of the legal health record. It is not the complete legal health record.[facility]
--- OUTSIDE RECORDS SUMMARY | 2025-09-17 19:02 | XMS_ITS | Encounter Summary ---
Author Organization [facility]erg[facility] With [facility] Address [address] [place] [phone] Phone Care Team Providers Care Laboratory Technician Name Role Phone Mode Richey DO Primary Care Provider [phone] Mode Richey DO Unavailable Court Richardson MD Unavailable Tyler Vann MD Unavailable Breonna Gates AUDIENCE DEVELOPMENT MANAGER Unavailable Carin Hernandez AUDIENCE DEVELOPMENT MANAGER Unavailable Tarun NolanC Unavailable Kristen Silveira RDCS Unavailable [email or web address] Osmar Lou MD Unavailable [phone] Abby Tijerina AUDIENCE DEVELOPMENT MANAGER Unavailable Mode Richey DO Unavailable Encounter Details Date Type Department Care Team (Late st Contact Info) Description 09/11/2019 Ancillary Orders Virtual Department [address] [place] [address] Mode Richey DO [address] [place] [address] [email or web address] Breast screening Social History Tobacco Use Types Packs/Day Years Used Date Smoking Tobacco: Never Assessed Comments Unknown Sex and Gender Information Value Date Recorded Sex Assigned at Not on file Legal Sex Female 9:38 PM EDT Gender Identity Not on file Sexual Orientation Not on file documented as of this encounter Plan of Treatment Not on file documented as of this encounter Results * BI MAMMOGRAM SCREENING WITH TOMOSYNTHESIS WITH CAD (BILATERAL) (09/28/2019 11:56 AM EST) Anatomical Region Laterality Modality Breast Left, Breast Right, Breast Bilateral Bila teral Mammography 09/28/2019 1:57 PM EST Impressions 09/28/2019 1:59 PM EST Stable appearance relative to prior imaging. No findings suggestive of malignancy are seen. BI-RADS CATEGORY: 2 - Benign finding. DENSITY: The breast tissue is heterogeneously dense, an appearance which lowers the sensitivity of mammography. POS - [id number] Narrative 09/28/2019 1:59 PM EST Full-field digital mammography is obtained with computer-aided detection. Comparison with prior imaging from July 06, 2016 is made with older imaging dating back as far as June 09, 2010 also reviewed. There is heterogeneous fibroglandular density evident in the breasts. In addition to 2-D C view imaging, tomosynthesis images are obtained in two projections of each breast. A biopsy clip is evident on the left. Minor scattered punctate calcifications are seen bilaterally.. No dominant soft tissue mass of concern, suspicious cluster of calcifications, significant interval skin changes, or architectural distortion is identified. Procedure Note Grady Anders MD - 09/28/2019 Full-field digital mammography is obtained with computer-aided detection.Comparison with prior imaging from July 06, 2016 is made with olderimaging dating back as far as June 09, 2010 also reviewed. There is heterogeneous fibroglandular density evident in the breasts. Inaddition to 2-D C view imaging, tomosynthesis images are obtained in twoprojections of each breast. A biopsy clip is evident on the left. Minor scattered punctatecalcifications are seen bilaterally.. No dominant soft tissue mass ofconcern, suspicious cluster of calcifications, significant interval skinchanges, or architectural distortion is identified. IMPRESSION: Stable appearance relative to prior imaging. No findings suggestive ofmalignancy are seen. BI-RADS CATEGORY: 2 - Benign finding. DENSITY: The breast tissue is heterogeneously dense, an appearance whichlowers the sensitivity of mammography. POS - [id number] us Mode Castillo Rossi MAURICIO IMG MG EXAMS Final Result documented in this encounter Visit Diagnoses Diagnosis Breast screening Breast screening, unspecified Breast screening Breast screening, unspecified documented in this encounter Additional Health Concerns Infection Onset Date Last Indicated Resolved Time CoV-Risk 06/11/2021 06/11/2021 06/22/2021 1:22 AM EDT documented as of this encounter Care Teams Laboratory Technician Relationship Specialty Start Date End Date Mode Richey DO PCP - General 08/08/17 Mode Richey DO Historical LMR Provider 08/10/17 Court Richardson MD [address] [place] [address] Historical LMR Provider 08/10/17 2 Tyler Vann MD [address] [place] [address] Historical LMR Provider 08/10/17 Breonna Gates NP [address] [place] [address] [email or web address] Historical LMR Provider 08/10/17 2 Carin Hernandez NP [address] [place] [address] Historical LMR Provider 08/10/17 2 Tarun Nolan PA-C [address] [place] [address] [facility] [place] [address] Historical LMR Provider 08/10/17 10/31/21 Kristen Silveira, VIVEKCS Historical LMR Provider 08/10/17 10/31/21 Osmar Lou MD [address] [place] [address] Historical LMR Provider 08/10/17 2 Abby Tijerina NP [address] [place] [address] Historical LMR Provider 08/10/17 2 Mode Richey DO [address] [place] [phone] [email or web address] Insurance Assigned Provider 01/28/24 documented as of this encounter Additional Source Comments The information contained in this document represents components of the legal health record. It is not the complete legal health record.[facility]
== END 2025-09-17 15:27 | disposition home or self-care (01) ==
LOC: HO.MANLDS 15:26
PROVIDERS: Visit Provider Internal Medicine
DX: E03.9 Hypothyroidism, unspecified (principal)
CPT/HCPCS: 36415; 80053; 84443; 85025